=== PATIENT | male | born 1970 | race Caucasian/White ===

== ENCOUNTER → 2021-03-29 08:35 | Outpatient (CLI) | payer OTHER, SELFPAY ==
[2021-03-29 11:36] LABS: COVID19 -Nasal RAPID Negative (Negative)
== END ==
PROVIDERS: PCP Physician Assistant; Visit Provider Nurse Practitioner Family
DX: Z20.822 Contact with and (suspected) exposure to COVID-19 (principal); R05.9 Cough, unspecified; R09.89 Other specified symptoms and signs involving the circulatory and respiratory systems
CPT/HCPCS: 87635

== ENCOUNTER 2022-05-19 10:32 | Emergency (ER) | payer OTHER, SELFPAY ==
[2022-05-19] VITALS (7 sets, daily range): BP systolic 154–178; BP diastolic 97–118; PULSE 91–103; RESP 14–21; TEMP 36.4; O2SAT 95–99; BMI 29.9
--- NOTE | 2022-05-19 11:03 | DI.RAD.S_ITS ---
PROCEDURE: XR CHEST 1V INDICATIONS: chest pain TECHNIQUE: One view of the chest was acquired. COMPARISON: None. FINDINGS: Surgical changes and devices: None. Lungs and pleura: Lungs are clear. No pleural effusions or pneumothorax. Mediastinum: Mediastinal contours appear normal. Heart size is normal. Bones and chest wall: No suspicious bony lesions. Overlying soft tissues appear unremarkable. IMPRESSION: No acute cardiopulmonary abnormality. Dictated by: Del Goldman M.D. on 05/19/2022 at 11:27 Approved by: Del Goldman M.D. on 05/19/2022 at 11:28
[2022-05-19] MEDS: ONDANSETRON 4 MG/2 ML INJ IV (11:09)
[2022-05-19 11:22] LABS: Add Manual Diff / Slide Review NO; Basophils Absolute Auto 100 /uL (0-100); Basophils Percent Auto 0.8 % (0-2); Eosinophils Absolute Auto 0 /uL (0-450); Eosinophils Percent Auto 0.2 % (2-4); Hemoglobin 18.1 g/dL (13.5-17.5); Lymphocytes Absolute Auto 1300 /uL (1100-4500); Lymphocytes Percent Auto 12.1 % (25-40); Mean Corpuscular HGB Conc 34.1 % (30-36); Mean Corpuscular Hemoglobin 31.5 PG (26-34); Mean Corpuscular Volume 92.2 fL (80-100); Monocytes Absolute Auto 1200 /uL (0-900); Monocytes Percent Auto 11.2 % (3-14); Neutrophils Absolute Auto 8300 /uL (1500-7000); Neutrophils Percent Auto 75.7 % (50-75); Platelet Count 306 X10^3/uL (150-400); Red Blood Cell Count 5.75 X10^6/uL (4.5-5.9); Red Cell Distribution Width 13.5 % (11.6-14.8)
[2022-05-19 11:30] LABS: INR 1.1 (0.9-1.3); Prothrombin Time 12.7 SECONDS (10.1-12.7)
[2022-05-19 11:33] LABS: PTT Partial Thromboplastin Tim 40 SECONDS (26-36)
[2022-05-19 11:35] LABS: Alanine Aminotransferase 40 IU/L (<50); Albumin 4.8 g/dL (3.5-5.0); Albumin Globulin Ratio 1.3 (1.0-2.8); Alkaline Phosphatase 94 U/L (38-126); Aspartate Aminotransferase 26 IU/L (17-59); BUN Creatinine Ratio 27.1 (6-22); Bilirubin Total 1.4 mg/dL (0.2-1.3); Blood Urea Nitrogen 26 mg/dL (9-20); Calcium 10.3 mg/dL (8.4-10.2); Carbon Dioxide 22 mmol/L (22-32); Chloride 100 mmol/L (98-107); Creatine Kinase 76 U/L (55-170); Estimated Glomerular Filt Rate > 60 mL/min (>60); Globulin 3.8 g/dL (1.7-4.1); Glucose 112 mg/dL (70-100); HEMOLYSIS < 15 (0-50); Lipase 52 U/L (23-300); Potassium 4.3 mmol/L (3.4-5.1); Sodium 138 mmol/L (137-145); Total Protein 8.6 g/dL (6.3-8.2)
[2022-05-19 11:47] LABS: Troponin I < 0.012 ng/mL (0.01-0.034)
[2022-05-19 12:05] LABS: Influenza A - CEPHEID Flu A NEGATIVE (NEGATIVE); Influenza B - CEPHEID Flu B NEGATIVE (NEGATIVE); Respiratory Syncytial Virus Negative (Negative)
[2022-05-19 12:09] LABS: COVID-19 CEPHEID 4-PLEX PCR POSITIVE (Negative)
[2022-05-19] MEDS: SODIUM CHLORIDE 0.9% 1,000 ML 1000 ML IV (13:33)
[2022-05-19 14:02] LABS: Lactate (Lactic Acid) 1.1 mmol/L (0.7-2.1)
--- NOTE | 2022-05-19 14:15 | ED_ITS ---
HPI - Chest Pain <PARADISE Park - Last Filed: 05/19/22 15:56> General Chief Complaint: Chest Pain Stated Complaint: chest pain [place] abd pain t-4 Time Seen by Provider: 05/19/22 13:22 Source: patient Mode of arrival: Ambulatory Limitations: no limitations History of Present Illness HPI narrative: This is a 51-year-old gentleman who presents to the emergency department complaining of chest pain, nausea and cough for the last 4 days. Patient states that he had nausea vomiting and has not been able to keep anything down for the last couple of days. States he has not had a bowel movement for the last 3 days, CC has not been able to keep anything down in feels dehydrated. He denies any substernal chest pain, states that his pain is worse with deep inspiration and he is had a productive cough with a copious amount of mucus. He denies wheezing, denies shortness of breath when he lies down, denies having any cardiac history, is not diabetic, denies history of COPD or smoking. He feels like he has palpitations, is congested, feels nauseated currently. Denies fever. Related Data Previous Rx's Medication Instructions Recorded lisinopril 10 mg tablet 10 mg PO QDAY #30 tabs 02/19/13 omeprazole 20 mg capsule,delayed 20 mg PO HS #30 caps 02/19/13 release hydrocodone 5 mg-acetaminophen 325 1 tab PO BID PRN pain #14 tabs 05/19/22 mg tablet ondansetron 4 mg disintegrating 4 mg PO Q8H PRN nausea and 05/19/22 tablet vomiting #14 tabs Allergies Allergy/AdvReac Type Severity Reaction Status Date / Time codeine Allergy Verified 05/19/22 11:00 Review of Systems <PARADISE Park - Last Filed: 05/19/22 15:56> Review of Systems Narrative: Review of systems is negative for acute abnormalities unless otherwise noted in HPI Patient History <PARADISE Park - Last Filed: 05/19/22 15:56> Social History Smoking Status: Unknown if ever smoked Smoking Status: Unknown if ever smoked alcohol intake frequency: holidays/special occasions only Substance Use Type: does not use Exam <PARADISE Park - Last Filed: 05/19/22 15:56> Narrative Exam Narrative: Independently reviewed vital signs and nursing notes. General: Awake, alert, nontoxic appearing, without distress Head/Neck: Atraumatic, neck full range of motion, no cervical lymphadenopathy Eyes: EOMI, conjunctiva normal Nose: nares patent, no rhinorrhea, congestion is present Mouth/Throat: moist mucus membranes, posterior pharynx normal, no oral lesions Cardio: Regular rate and rhythm, no peripheral edema without lower extremity edema currently, Respiratory: CTAB unlabored without wheezing, stridor, or rales. No retractions. MSK: Moves all extremities, neurovascularly intact Skin: Normal capillary refill, no rash Neuro: Normal speech and cognition, normal gait Initial Vital Signs Initial Vital Signs: Vital Signs Temperature 97.6 F 05/19/22 10:58 Pulse Rate 103 H 05/19/22 10:58 Respiratory Rate 17 05/19/22 10:58 Blood Pressure 154/97 H 05/19/22 10:58 Pulse Oximetry 99 05/19/22 10:58 Oxygen Delivery Method 05/19/22 10:58 <Ginette Felder DO - Last Filed: 05/20/22 11:53> Initial Vital Signs Initial Vital Signs: Vital Signs Temperature 97.6 F 05/19/22 10:58 Pulse Rate 103 H 05/19/22 10:58 Respiratory Rate 17 05/19/22 10:58 Blood Pressure 154/97 H 05/19/22 10:58 Pulse Oximetry 99 05/19/22 10:58 Oxygen Delivery Method 05/19/22 10:58 Course <PARADISE Park - Last Filed: 05/19/22 15:56> Orders Ordered: Discontinued Medications Sodium Chloride (Normal Saline 0.9%) 1,000 mls @ 1,000 mls/hr IV BOLUS ONE Stop: 05/19/22 14:27 Last Infusion: 05/19/22 14:40 Dose: 0 mls/hr Documented By: Admin: 05/19/22 13:33 Dose: 1,000 mls/hr Documented By: GEORGE(2) Ondansetron HCl (Ondansetron 4 Mg/2 Ml Inj) 4 mg IV NOW ONE Stop: 05/19/22 11:05 Last Admin: 05/19/22 11:09 Dose: 4 mg Documented By: GEORGE Vital Signs Vital signs: Vital Signs - 8 hr 05/19/22 10:58 05/19/22 13:59 05/19/22 14:00 Temperature 97.6 F Pulse Rate 103 H 95 H Respiratory Rate 17 21 Blood Pressure 154/97 H 165/113 H Pulse Oximetry 99 95 Oxygen Delivery Method Room Air 05/19/22 14:00 05/19/22 14:01 05/19/22 14:01 Temperature Pulse Rate 96 H 96 H Respiratory Rate 21 17 Blood Pressure 178/118 H Pulse Oximetry 96 97 Oxygen Delivery Method 05/19/22 14:02 05/19/22 14:02 05/19/22 14:30 Temperature Pulse Rate 96 H 95 H Respiratory Rate 14 15 Blood Pressure 172/100 H Pulse Oximetry 98 96 Oxygen Delivery Method 05/19/22 15:07 Temperature Pulse Rate 91 H Respiratory Rate 18 Blood Pressure 175/106 H Pulse Oximetry 98 Oxygen Delivery Method Room Air <Ginette Felder, - Last Filed: 05/20/22 11:53> Orders Ordered: Discontinued Medications Sodium Chloride (Normal Saline 0.9%) 1,000 mls @ 1,000 mls/hr IV BOLUS ONE Stop: 05/19/22 14:27 Last Infusion: 05/19/22 14:40 Dose: 0 mls/hr Documented By: Admin: 05/19/22 13:33 Dose: 1,000 mls/hr Documented By: GEORGE(2) Ondansetron HCl (Ondansetron 4 Mg/2 Ml Inj) 4 mg IV NOW ONE Stop: 05/19/22 11:05 Last Admin: 05/19/22 11:09 Dose: 4 mg Documented By: GEORGE Vital Signs Vital signs: Vital Signs - 8 hr 05/19/22 10:58 05/19/22 13:59 05/19/22 14:00 Temperature 97.6 F Pulse Rate 103 H 95 H Respiratory Rate 17 21 Blood Pressure 154/97 H 165/113 H Pulse Oximetry 99 95 Oxygen Delivery Method Room Air 05/19/22 14:00 05/19/22 14:01 05/19/22 14:01 Temperature Pulse Rate 96 H 96 H Respiratory Rate 21 17 Blood Pressure 178/118 H Pulse Oximetry 96 97 Oxygen Delivery Method 05/19/22 14:02 05/19/22 14:02 05/19/22 14:30 Temperature Pulse Rate 96 H 95 H Respiratory Rate 14 15 Blood Pressure 172/100 H Pulse Oximetry 98 96 Oxygen Delivery Method 05/19/22 15:07 Temperature Pulse Rate 91 H Respiratory Rate 18 Blood Pressure 175/106 H Pulse Oximetry 98 Oxygen Delivery Method Room Air MDM - Chest Pain <CELI ParkP - Last Filed: 05/19/22 15:56> Lab Data Result diagrams: 05/19/22 11:08 05/19/22 11:08 Labs: Lab Results 05/19/22 05/19/22 05/19/22 Range/Units 11:08 11:08 11:08 WBC 11.0 (4.5-11.0) X10^3/uL RBC 5.75 (4.5-5.9) X10^6/uL Hgb 18.1 H (13.5-17.5) g/dL Hct 53.0 (41-53) % MCV 92.2 (80-100) fL MCH 31.5 (26-34) PG MCHC 34.1 (30-36) % RDW 13.5 (11.6-14.8) % Plt Count 306 (150-400) X10^3/uL Neut % (Auto) 75.7 H (50-75) % Lymph % (Auto) 12.1 L (25-40) % Marshall % (Auto) 11.2 (3-14) % Eos % (Auto) 0.2 L (2-4) % Baso % (Auto) 0.8 (0-2) % Neut # (Auto) 8300 H (5079-8648) /uL Lymph # (Auto) 1300 (1943-6986) /uL Marshall # (Auto) 1200 H (0-900) /uL Eos # (Auto) 0 (0-450) /uL Baso # (Auto) 100 (0-100) /uL PT 12.7 (10.1-12.7) SECONDS INR 1.1 (0.9-1.3) APTT 40 H (26-36) SECONDS Sodium 138 (137-145) mmol/L Potassium 4.3 (3.4-5.1) mmol/L Chloride 100 (98-107) mmol/L Carbon Dioxide 22 (22-32) mmol/L BUN 26 H (9-20) mg/dL Creatinine 0.96 (0.66-1.25) mg/dL Estimated GFR > 60 (>60) mL/min BUN/Creatinine Ratio 27.1 H (6-22) Glucose 112 H (70-100) mg/dL Lactate (0.7-2.1) mmol/L Calcium 10.3 H (8.4-10.2) mg/dL Magnesium 2.0 (1.6-2.3) mg/dL Total Bilirubin 1.4 H (0.2-1.3) mg/dL AST 26 (17-59) IU/L ALT 40 (<50) IU/L Alkaline Phosphatase 94 (38-126) U/L Total Creatine Kinase 76 (55-170) U/L CK-MB (CK-2) TNP CK-MB (CK-2) Rel Index TNP Troponin I < 0.012 (0.01-0.034) ng/mL Total Protein 8.6 H (6.3-8.2) g/dL Albumin 4.8 (3.5-5.0) g/dL Globulin 3.8 (1.7-4.1) g/dL Albumin/Globulin Ratio 1.3 (1.0-2.8) Lipase 52 (23-300) U/L Urine RBC (0-5/HPF) Urine WBC (0-5/HPF) Amorphous Sediment Urine Bacteria (None) Urine Mucus (Negative) Ur Culture Indicated? SARS-CoV-2 (PCR) (Negative) Influenza A (RT-PCR) (NEGATIVE) Influenza B (RT-PCR) (NEGATIVE) RSV (PCR) (Negative) 05/19/22 05/19/22 05/19/22 Range/Units 11:08 11:08 14:20 WBC (4.5-11.0) X10^3/uL RBC (4.5-5.9) X10^6/uL Hgb (13.5-17.5) g/dL Hct (41-53) % MCV (80-100) fL MCH (26-34) PG MCHC (30-36) % RDW (11.6-14.8) % Plt Count (150-400) X10^3/uL Neut % (Auto) (50-75) % Lymph % (Auto) (25-40) % Marshall % (Auto) (3-14) % Eos % (Auto) (2-4) % Baso % (Auto) (0-2) % Neut # (Auto) (7546-8974) /uL Lymph # (Auto) (9362-0675) /uL Marshall # (Auto) (0-900) /uL Eos # (Auto) (0-450) /uL Baso # (Auto) (0-100) /uL PT (10.1-12.7) SECONDS INR (0.9-1.3) APTT (26-36) SECONDS Sodium Cancelled (137-145) mmol/L Potassium Cancelled (3.4-5.1) mmol/L Chloride Cancelled (98-107) mmol/L Carbon Dioxide Cancelled (22-32) mmol/L BUN Cancelled (9-20) mg/dL Creatinine Cancelled (0.66-1.25) mg/dL Estimated GFR Cancelled (>60) mL/min BUN/Creatinine Ratio Cancelled (6-22) Glucose Cancelled (70-100) mg/dL Lactate 1.1 (0.7-2.1) mmol/L Calcium Cancelled (8.4-10.2) mg/dL Magnesium (1.6-2.3) mg/dL Total Bilirubin Cancelled (0.2-1.3) mg/dL AST Cancelled (17-59) IU/L ALT Cancelled (<50) IU/L Alkaline Phosphatase Cancelled (38-126) U/L Total Creatine Kinase (55-170) U/L CK-MB (CK-2) CK-MB (CK-2) Rel Index Troponin I (0.01-0.034) ng/mL Total Protein Cancelled (6.3-8.2) g/dL Albumin Cancelled (3.5-5.0) g/dL Globulin Cancelled (1.7-4.1) g/dL Albumin/Globulin Ratio Cancelled (1.0-2.8) Lipase 338 H D (23-300) U/L Urine RBC (0-5/HPF) Urine WBC (0-5/HPF) Amorphous Sediment Urine Bacteria (None) Urine Mucus (Negative) Ur Culture Indicated? SARS-CoV-2 (PCR) Positive H (Negative) Influenza A (RT-PCR) Flu a negative (NEGATIVE) Influenza B (RT-PCR) Flu b negative (NEGATIVE) RSV (PCR) Negative (Negative) 05/19/22 Range/Units 14:54 WBC (4.5-11.0) X10^3/uL RBC (4.5-5.9) X10^6/uL Hgb (13.5-17.5) g/dL Hct (41-53) % MCV (80-100) fL MCH (26-34) PG MCHC (30-36) % RDW (11.6-14.8) % Plt Count (150-400) X10^3/uL Neut % (Auto) (50-75) % Lymph % (Auto) (25-40) % Marshall % (Auto) (3-14) % Eos % (Auto) (2-4) % Baso % (Auto) (0-2) % Neut # (Auto) (0822-4836) /uL Lymph # (Auto) (1422-2250) /uL Marshall # (Auto) (0-900) /uL Eos # (Auto) (0-450) /uL Baso # (Auto) (0-100) /uL PT (10.1-12.7) SECONDS INR (0.9-1.3) APTT (26-36) SECONDS Sodium (137-145) mmol/L Potassium (3.4-5.1) mmol/L Chloride (98-107) mmol/L Carbon Dioxide (22-32) mmol/L BUN (9-20) mg/dL Creatinine (0.66-1.25) mg/dL Estimated GFR (>60) mL/min BUN/Creatinine Ratio (6-22) Glucose (70-100) mg/dL Lactate (0.7-2.1) mmol/L Calcium (8.4-10.2) mg/dL Magnesium (1.6-2.3) mg/dL Total Bilirubin (0.2-1.3) mg/dL AST (17-59) IU/L ALT (<50) IU/L Alkaline Phosphatase (38-126) U/L Total Creatine Kinase (55-170) U/L CK-MB (CK-2) CK-MB (CK-2) Rel Index Troponin I (0.01-0.034) ng/mL Total Protein (6.3-8.2) g/dL Albumin (3.5-5.0) g/dL Globulin (1.7-4.1) g/dL Albumin/Globulin Ratio (1.0-2.8) Lipase (23-300) U/L Urine RBC 1-5/hpf (0-5/HPF) Urine WBC None seen (0-5/HPF) Amorphous Sediment 2+ Urine Bacteria None seen (None) Urine Mucus 3+ H (Negative) Ur Culture Indicated? Cult not indicated SARS-CoV-2 (PCR) (Negative) Influenza A (RT-PCR) (NEGATIVE) Influenza B (RT-PCR) (NEGATIVE) RSV (PCR) (Negative) Urine Dip Bedside Urine Glucose Negative Bedside Urine Bilirubin - Negative Bedside Urine Ketone +/- 5 Urine Specific [place] 1.030 Bedside Urine Occult Blood +++ Bedside Urine pH 6.0 Bedside Urine Protein + 30 Bedside Urine Urobilinogen - Negative Bedside Urine Nitrite - Negative Bedside Urine Leukocytes - Negative Esterase MDM Narrative Medical decision making narrative: This is a 51-year-old gentleman presents to the emergency department with 4 days of nausea, abdominal pain, vomiting without bowel movement for the last 3 days. He states he has been unable to keep anything down, his respiratory panel is positive for COVID-19. He has history of cholecystectomy but endorses epigastric pain. His lab work is significant for hemo concentration, I suspect that he was moderately dehydrated, there is a left shift without anemia or leukocytosis, coag factors were normal, creatinine without elevation, mild elevation 2 BUN at 26, calcium came back at 10.3 with total bilirubin of 1.4, no elevation to his liver enzymes, troponin, his lipase initial came back at 52 and then 3 hours later a 2nd lipase was documented at 338. I am suspicious if this if it was his and was not aware that he had 2 lab draws. Patient received 1 L of fluid, no lactic acidosis, without leukocytosis low suspicion for cholangitis. Called in Zofran and hydrocodone as needed for pain, discuss with his who states that since he is had his gallbladder removed he has not had gallbladder related issues and has not had any diarrhea but has had frequent vomiting without fever and chills. Given strict return precautions for worsening of his abdominal pain or vomiting to come back to the emergency department, encouraged him to stay hydrated, use NSAIDs and hydrocodone as needed for pain with Zofran for nausea and vomiting. No peritoneal signs on abdominal exam. Patient remains p.o. tolerant. Serial abdominal exam without increase in abdominal pain. Given history and exam, this could be pancreatitis but is less likely since his 1st lipase was 52, his symptoms improved with medications and hydration, perforated viscus, atypical appendicitis, colitis, diverticulitis or torsion without symptoms to suggest these. Extensive convers ation about ER return precautions and need for close follow-up. <Ginette Felder, DO - Last Filed: 05/20/22 11:53> Lab Data Labs: Lab Results 05/19/22 05/19/22 05/19/22 Range/Units 11:08 11:08 11:08 WBC 11.0 (4.5-11.0) X10^3/uL RBC 5.75 (4.5-5.9) X10^6/uL Hgb 18.1 H (13.5-17.5) g/dL Hct 53.0 (41-53) % MCV 92.2 (80-100) fL MCH 31.5 (26-34) PG MCHC 34.1 (30-36) % RDW 13.5 (11.6-14.8) % Plt Count 306 (150-400) X10^3/uL Neut % (Auto) 75.7 H (50-75) % Lymph % (Auto) 12.1 L (25-40) % Marshall % (Auto) 11.2 (3-14) % Eos % (Auto) 0.2 L (2-4) % Baso % (Auto) 0.8 (0-2) % Neut # (Auto) 8300 H (1127-6938) /uL Lymph # (Auto) 1300 (4054-5121) /uL Marshall # (Auto) 1200 H (0-900) /uL Eos # (Auto) 0 (0-450) /uL Baso # (Auto) 100 (0-100) /uL PT 12.7 (10.1-12.7) SECONDS INR 1.1 (0.9-1.3) APTT 40 H (26-36) SECONDS Sodium 138 (137-145) mmol/L Potassium 4.3 (3.4-5.1) mmol/L Chloride 100 (98-107) mmol/L Carbon Dioxide 22 (22-32) mmol/L BUN 26 H (9-20) mg/dL Creatinine 0.96 (0.66-1.25) mg/dL Estimated GFR > 60 (>60) mL/min BUN/Creatinine Ratio 27.1 H (6-22) Glucose 112 H (70-100) mg/dL Lactate (0.7-2.1) mmol/L Calcium 10.3 H (8.4-10.2) mg/dL Magnesium 2.0 (1.6-2.3) mg/dL Total Bilirubin 1.4 H (0.2-1.3) mg/dL AST 26 (17-59) IU/L ALT 40 (<50) IU/L Alkaline Phosphatase 94 (38-126) U/L Total Creatine Kinase 76 (55-170) U/L CK-MB (CK-2) TNP CK-MB (CK-2) Rel Index TNP Troponin I < 0.012 (0.01-0.034) ng/mL Total Protein 8.6 H (6.3-8.2) g/dL Albumin 4.8 (3.5-5.0) g/dL Globulin 3.8 (1.7-4.1) g/dL Albumin/Globulin Ratio 1.3 (1.0-2.8) Lipase 52 (23-300) U/L Urine RBC (0-5/HPF) Urine WBC (0-5/HPF) Amorphous Sediment Urine Bacteria (None) Urine Mucus (Negative) Ur Culture Indicated? SARS-CoV-2 (PCR) (Negative) Influenza A (RT-PCR) (NEGATIVE) Influenza B (RT-PCR) (NEGATIVE) RSV (PCR) (Negative) 05/19/22 05/19/22 05/19/22 Range/Units 11:08 11:08 14:20 WBC (4.5-11.0) X10^3/uL RBC (4.5-5.9) X10^6/uL Hgb (13.5-17.5) g/dL Hct (41-53) % MCV (80-100) fL MCH (26-34) PG MCHC (30-36) % RDW (11.6-14.8) % Plt Count (150-400) X10^3/uL Neut % (Auto) (50-75) % Lymph % (Auto) (25-40) % Marshall % (Auto) (3-14) % Eos % (Auto) (2-4) % Baso % (Auto) (0-2) % Neut # (Auto) (6778-6214) /uL Lymph # (Auto) (4263-2012) /uL Marshall # (Auto) (0-900) /uL Eos # (Auto) (0-450) /uL Baso # (Auto) (0-100) /uL PT (10.1-12.7) SECONDS INR (0.9-1.3) APTT (26-36) SECONDS Sodium Cancelled (137-145) mmol/L Potassium Cancelled (3.4-5.1) mmol/L Chloride Cancelled (98-107) mmol/L Carbon Dioxide Cancelled (22-32) mmol/L BUN Cancelled (9-20) mg/dL Creatinine Cancelled (0.66-1.25) mg/dL Estimated GFR Cancelled (>60) mL/min BUN/Creatinine Ratio Cancelled (6-22) Glucose Cancelled (70-100) mg/dL Lactate 1.1 (0.7-2.1) mmol/L Calcium Cancelled (8.4-10.2) mg/dL Magnesium (1.6-2.3) mg/dL Total Bilirubin Cancelled (0.2-1.3) mg/dL AST Cancelled (17-59) IU/L ALT Cancelled (<50) IU/L Alkaline Phosphatase Cancelled (38-126) U/L Total Creatine Kinase (55-170) U/L CK-MB (CK-2) CK-MB (CK-2) Rel Index Troponin I (0.01-0.034) ng/mL Total Protein Cancelled (6.3-8.2) g/dL Albumin Cancelled (3.5-5.0) g/dL Globulin Cancelled (1.7-4.1) g/dL Albumin/Globulin Ratio Cancelled (1.0-2.8) Lipase 338 H D (23-300) U/L Urine RBC (0-5/HPF) Urine WBC (0-5/HPF) Amorphous Sediment Urine Bacteria (None) Urine Mucus (Negative) Ur Culture Indicated? SARS-CoV-2 (PCR) Positive H (Negative) Influenza A (RT-PCR) Flu a negative (NEGATIVE) Influenza B (RT-PCR) Flu b negative (NEGATIVE) RSV (PCR) Negative (Negative) 05/19/22 Range/Units 14:54 WBC (4.5-11.0) X10^3/uL RBC (4.5-5.9) X10^6/uL Hgb (13.5-17.5) g/dL Hct (41-53) % MCV (80-100) fL MCH (26-34) PG MCHC (30-36) % RDW (11.6-14.8) % Plt Count (150-400) X10^3/uL Neut % (Auto) (50-75) % Lymph % (Auto) (25-40) % Marshall % (Auto) (3-14) % Eos % (Auto) (2-4) % Baso % (Auto) (0-2) % Neut # (Auto) (1576-5652) /uL Lymph # (Auto) (0054-6605) /uL Marshall # (Auto) (0-900) /uL Eos # (Auto) (0-450) /uL Baso # (Auto) (0-100) /uL PT (10.1-12.7) SECONDS INR (0.9-1.3) APTT (26-36) SECONDS Sodium (137-145) mmol/L Potassium (3.4-5.1) mmol/L Chloride (98-107) mmol/L Carbon Dioxide (22-32) mmol/L BUN (9-20) mg/dL Creatinine (0.66-1.25) mg/dL Estimated GFR (>60) mL/min BUN/Creatinine Ratio (6-22) Glucose (70-100) mg/dL Lactate (0.7-2.1) mmol/L Calcium (8.4-10.2) mg/dL Magnesium (1.6-2.3) mg/dL Total Bilirubin (0.2-1.3) mg/dL AST (17-59) IU/L ALT (<50) IU/L Alkaline Phosphatase (38-126) U/L Total Creatine Kinase (55-170) U/L CK-MB (CK-2) CK-MB (CK-2) Rel Index Troponin I (0.01-0.034) ng/mL Total Protein (6.3-8.2) g/dL Albumin (3.5-5.0) g/dL Globulin (1.7-4.1) g/dL Albumin/Globulin Ratio (1.0-2.8) Lipase (23-300) U/L Urine RBC 1-5/hpf (0-5/HPF) Urine WBC None seen (0-5/HPF) Amorphous Sediment 2+ Urine Bacteria None seen (None) Urine Mucus 3+ H (Negative) Ur Culture Indicated? Cult not indicated SARS-CoV-2 (PCR) (Negative) Influenza A (RT-PCR) (NEGATIVE) Influenza B (RT-PCR) (NEGATIVE) RSV (PCR) (Negative) Urine Dip Bedside Urine Glucose Negative Bedside Urine Bilirubin - Negative Bedside Urine Ketone +/- 5 Urine Specific [place] 1.030 Bedside Urine Occult Blood +++ Bedside Urine pH 6.0 Bedside Urine Protein + 30 Bedside Urine Urobilinogen - Negative Bedside Urine Nitrite - Negative Bedside Urine Leukocytes - Negative Esterase ECG Data Attestation: I personally reviewed and interpreted this ECG as follows: Prior ECG tracings: not available for review Interpretation: Sinus tachycardia rate of 1 0 6p are 136 QRS 86 and QTC of 441. No acute ST elevation, no priors for comparison. Discharge Plan Departure Patient Disposition: Home Clinical Impression: COVID-19, Acute dehydration, Elevated lipase Instructions: Nausea and Vomiting-Adult, COVID-19 Activity Restrictions/Additional Instructions: *You have been diagnosed with COVID, and nausea and vomiting with dehydration. Please focus on staying hydrated as you are able to, take Tylenol ibuprofen every 6-8 hours with food and water, take Zofran every 8 hours as needed for nausea and vomiting. It is okay to take loperamide if you are constipated or start using MiraLax to help bring fluid into your colon. I hope you start feeling better soon, return for worsening shortness of breath, chest pain, or other worsening symptoms. Stay well hydrated, take Motrin or Tylenol for fever/pain, and can take [id number] medications if needed for cold symptoms. If you begin to feel short of breath or develop chest pain, please seek medical evaluation. *What to do: *Please continue to take your regular medications as directed. [x ] New medication prescriptions sent to your pharmacy: [[facility] ] [ ] New medication written as a paper prescription [ ] No new medications given *Please follow up with your primary care provider in 2-3 days, call for an appointment. Let them know you were seen in the Emergency Department and that we asked that you be seen for follow-up. We will electronically transmit a record of today's note if your PCP is in our system *If you do not have a primary care provider please contact [phone] to establish care with one of the [facility] primary care providers. *Return to Emergency Department if you should have any new, worsening, or concerning symptoms, such as [fever greater than 101F, chills, worsening pain, persistent vomiting or other bothersome symptoms]. Prescriptions: New ondansetron 4 mg tablet,disintegrating 4 mg PO Q8H PRN (Reason: nausea and vomiting) Qty: 14 0RF hydrocodone-acetaminophen 5-325 mg tablet 1 tab PO BID PRN (Reason: pain) Qty: 14 0RF No Action lisinopril 10 MG tablet 10 mg PO QDAY Qty: 30 3RF omeprazole 20 MG capsule,delayed release(DR/EC) 20 mg PO HS Qty: 30 3RF Referrals: Miscellaneous,Doctor, MD [Primary Care Provider] - Visit Report Forms: Patient Portal/API <Ginette Felder DO - Last Filed: 05/20/22 11:53> [facility] ED Attending Carmita Attestation: I was immediately available in the department for consultation. Documentation has been reviewed. Findings were reviewed, patient appears have accidentally had a 2nd lipase ordered which is reason why it was drawn. Very mildly elevated over the cut off for 300 on repeat.
[2022-05-19 14:58] LABS: Lipase 338 U/L (23-300)
[2022-05-19 15:22] LABS: Amorphous Sediment Urine 2+; Bacteria Urine None Seen; Mucus Urine 3+ (Negative); RBC Urine 1-5/HPF (0-5/HPF); WBC Urine None Seen (0-5/HPF)
[2022-05-19 15:23] LABS: Culture Indicated Urine Cult Not Indicated
== END 2022-05-19 15:08 | disposition home or self-care (01) ==
PROVIDERS: Emergency Medicine; Emergency Provider Nurse Practitioner Critical Care Medicine
DX: U07.1 COVID-19 (principal); E86.0 Dehydration; R74.8 Abnormal levels of other serum enzymes; R11.2 Nausea with vomiting, unspecified
CPT/HCPCS: 0241U; 36415; 71045; 80053; 81003; 81015; 82550; 83605; 83690; 83735; 84484; 85025; 85610; 85730; 93005; J2405

== ENCOUNTER 2022-05-19 17:30 | Emergency (ER) | payer OTHER, SELFPAY ==
[2022-05-19 17:35] VITALS: BP 150/93; PULSE 108; RESP 21; TEMP 36.7; O2SAT 98; BMI 29.9
[2022-05-19 18:13] LABS: D Dimer 325 ng/ml (<500)
[2022-05-19 18:15] LABS: Alanine Aminotransferase 37 IU/L (<50); Albumin 4.5 g/dL (3.5-5.0); Albumin Globulin Ratio 1.3 (1.0-2.8); Alkaline Phosphatase 90 U/L (38-126); Aspartate Aminotransferase 22 IU/L (17-59); BUN Creatinine Ratio 22.6 (6-22); Blood Urea Nitrogen 26 mg/dL (9-20); Calcium 9.8 mg/dL (8.4-10.2); Carbon Dioxide 24 mmol/L (22-32); Chloride 101 mmol/L (98-107); Estimated Glomerular Filt Rate > 60 mL/min (>60); Globulin 3.4 g/dL (1.7-4.1); Glucose 128 mg/dL (70-100); HEMOLYSIS < 15 (0-50); Lactate (Lactic Acid) 0.8 mmol/L (0.7-2.1); Potassium 3.9 mmol/L (3.4-5.1); Sodium 138 mmol/L (137-145); Total Protein 7.9 g/dL (6.3-8.2)
[2022-05-19 18:36] LABS: Lipase 188 U/L (23-300)
[2022-05-19 18:37] LABS: Procalcitonin 0.13 ng/mL (<0.5)
[2022-05-19 18:53] LABS: C-Reactive Protein Quant 1.1 mg/dL (<1.0)
[2022-05-19 18:56] LABS: Troponin I < 0.012 ng/mL (0.01-0.034)
[2022-05-19 19:09] VITALS: BP 150/90; PULSE 100; RESP 18; TEMP 36.7; O2SAT 99
--- NOTE | 2022-05-19 20:11 | ED_ITS ---
HPI - Chest Pain <PARADISE Park - Last Filed: 05/19/22 20:19> General Chief Complaint: Chest Pain Stated Complaint: CHEST PAIN Time Seen by Provider: 05/19/22 17:43 Source: patient Mode of arrival: Ambulatory Limitations: no limitations History of Present Illness HPI narrative: This is a 51-year-old gentleman who returns to the emergency department after testing positive for COVID-19 and worked up for his nausea and vomiting. I called him after discharge and spoke with his regarding an elevated lipase level which came back at 338, 2 hours after his 1st lipase was drawn with a level of 52. I called in pain medication, nausea medication encouraged the patient to stay hydrated, and he returns saying that he still has pain and did not think it was due to COVID-19. He said it was probably pancreatitis since I was concerned about with the lab value. He denies any new symptoms since his discharge a couple hours ago. He picked up his medications, I talked with him about his symptoms and offered to recheck his lab work and his EKG to ensure that this is not a new problem on top of his other problems. Related Data Previous Rx's Medication Instructions Recorded lisinopril 10 mg tablet 10 mg PO QDAY #30 tabs 02/19/13 omeprazole 20 mg capsule,delayed 20 mg PO HS #30 caps 02/19/13 release hydrocodone 5 mg-acetaminophen 325 1 tab PO BID PRN pain #14 tabs 05/19/22 mg tablet ondansetron 4 mg disintegrating 4 mg PO Q8H PRN nausea and 05/19/22 tablet vomiting #14 tabs Allergies Allergy/AdvReac Type Severity Reaction Status Date / Time codeine Allergy Verified 05/19/22 11:00 Review of Systems <PARADISE Park - Last Filed: 05/19/22 20:19> Review of Systems Narrative: Review of systems is negative for acute abnormalities unless otherwise noted in HPI Patient History <PARADISE Park - Last Filed: 05/19/22 20:19> Social History Smoking Status: Unknown if ever smoked Smoking Status: Unknown if ever smoked alcohol intake frequency: holidays/special occasions only Substance Use Type: does not use Exam <PARADISE Park - Last Filed: 05/19/22 20:19> Narrative Exam Narrative: Reviewed vitals signs and nursing notes. General: cooperative, comfortable, in no acute distress, well groomed, afebrile HEENT: symmetrical facial expressions, moist mucous membranes, congestion present Cardiovascular: Tachycardic rate and regular rhythm, no peripheral edema, warm extremities Respiratory: normal effort, able to speak in complete sentences, without wheezing, stridor, or abnormal breath sounds. No retractions or tachypnea. GI: abdomen soft,tender to palpation over his epigastrium, nondistended, without masses, rebound tenderness or exquisite tenderness with exam. Without recent vomiting MSK: moves all extremities, neurovascularly intact, no weakness, normal tone Skin: brisk capillary refill, without pallor or erythema Neuro: normal speech and cognition, A&O x3, ambulatory, clear speech Psych: mental status is grossly normal, congruent mood, normal affect, pleasant and cooperative Initial Vital Signs Initial Vital Signs: Vital Signs Temperature 98.1 F 05/19/22 17:35 Pulse Rate 108 H 05/19/22 17:35 Respiratory Rate 21 05/19/22 17:35 Blood Pressure 150/93 H 05/19/22 17:35 Pulse Oximetry 98 05/19/22 17:35 Oxygen Delivery Method 05/19/22 17:35 <Ginette Felder DO - Last Filed: 05/20/22 12:03> Initial Vital Signs Initial Vital Signs: Vital Signs Temperature 98.1 F 05/19/22 17:35 Pulse Rate 108 H 05/19/22 17:35 Respiratory Rate 21 05/19/22 17:35 Blood Pressure 150/93 H 05/19/22 17:35 Pulse Oximetry 98 05/19/22 17:35 Oxygen Delivery Method 05/19/22 17:35 Course <PARADISE Park - Last Filed: 05/19/22 20:19> Orders Ordered: ED Orders 05/19/22 16:45 Trop I [Troponin I] Stat 05/19/22 17:52 CMP [Comprehensive Metabolic Panel] Stat CRP [C-Reactive Protein Quant] Stat D Dimer Stat Lactate (Lactic Acid) Stat Lipase Stat Procalcitonin Stat 05/19/22 18:01 EKG-12 Lead Stat Vital Signs Vital signs: Vital Signs - 8 hr 05/19/22 17:35 05/19/22 19:09 Temperature 98.1 F 98.1 F Pulse Rate 108 H 100 H Respiratory Rate 21 18 Blood Pressure 150/93 H 150/90 H Pulse Oximetry 98 99 Oxygen Delivery Method Room Air <Ginette Felder DO - Last Filed: 05/20/22 12:03> Orders Ordered: ED Orders 05/19/22 16:45 Trop I [Troponin I] Stat 05/19/22 17:52 CMP [Comprehensive Metabolic Panel] Stat CRP [C-Reactive Protein Quant] Stat D Dimer Stat Lactate (Lactic Acid) Stat Lipase Stat Procalcitonin Stat 05/19/22 18:01 EKG-12 Lead Stat Vital Signs Vital signs: Vital Signs - 8 hr 05/19/22 17:35 05/19/22 19:09 Temperature 98.1 F 98.1 F Pulse Rate 108 H 100 H Respiratory Rate 21 18 Blood Pressure 150/93 H 150/90 H Pulse Oximetry 98 99 Oxygen Delivery Method Room Air MDM - Chest Pain <PARADISE Park - Last Filed: 05/19/22 20:19> Lab Data Result diagrams: 05/19/22 17:52 Labs: Lab Results 05/19/22 05/19/22 05/19/22 Range/Units 16:45 17:52 17:52 D-Dimer 325 (<500) ng/ml Sodium (137-145) mmol/L Potassium (3.4-5.1) mmol/L Chloride (98-107) mmol/L Carbon Dioxide (22-32) mmol/L BUN (9-20) mg/dL Creatinine (0.66-1.25) mg/dL Estimated GFR (>60) mL/min BUN/Creatinine Ratio (6-22) Glucose (70-100) mg/dL Lactate (0.7-2.1) mmol/L Calcium (8.4-10.2) mg/dL Total Bilirubin (0.2-1.3) mg/dL AST (17-59) IU/L ALT (<50) IU/L Alkaline Phosphatase (38-126) U/L Troponin I < 0.012 (0.01-0.034) ng/mL C-Reactive Protein (<1.0) mg/dL Total Protein (6.3-8.2) g/dL Albumin (3.5-5.0) g/dL Globulin (1.7-4.1) g/dL Albumin/Globulin Ratio (1.0-2.8) Lipase 188 (23-300) U/L Procalcitonin (<0.5) ng/mL 05/19/22 05/19/22 05/19/22 Range/Units 17:52 17:52 17:52 D-Dimer (<500) ng/ml Sodium 138 (137-145) mmol/L Potassium 3.9 (3.4-5.1) mmol/L Chloride 101 (98-107) mmol/L Carbon Dioxide 24 (22-32) mmol/L BUN 26 H (9-20) mg/dL Creatinine 1.15 (0.66-1.25) mg/dL Estimated GFR > 60 (>60) mL/min BUN/Creatinine Ratio 22.6 H (6-22) Glucose 128 H (70-100) mg/dL Lactate 0.8 (0.7-2.1) mmol/L Calcium 9.8 (8.4-10.2) mg/dL Total Bilirubin 1.0 (0.2-1.3) mg/dL AST 22 (17-59) IU/L ALT 37 (<50) IU/L Alkaline Phosphatase 90 (38-126) U/L Troponin I (0.01-0.034) ng/mL C-Reactive Protein 1.1 H (<1.0) mg/dL Total Protein 7.9 (6.3-8.2) g/dL Albumin 4.5 (3.5-5.0) g/dL Globulin 3.4 (1.7-4.1) g/dL Albumin/Globulin Ratio 1.3 (1.0-2.8) Lipase (23-300) U/L Procalcitonin 0.13 (<0.5) ng/mL Imaging Data Chest x-ray: Radiologist's Impression: PROCEDURE:? XR CHEST 1V ? INDICATIONS:? chest pain ? TECHNIQUE:? One view of the chest was acquired.? ? COMPARISON:? None. ? FINDINGS:? ? Surgical changes and devices:? None.? ? Lungs and pleura:? Lungs are clear.? No pleural effusions or pneumothorax.? ? Mediastinum:? Mediastinal contours appear normal.? Heart size is normal.? ? Bones and chest wall:? No suspicious bony lesions.? Overlying soft tissues appear unremarkable.? ? IMPRESSION:? No acute cardiopulmonary abnormality. ? ? Dictated by: Del Goldman M.D. on 05/19/2022 at 11:27 ? ? Approved by: Del Goldman M.D. on 05/19/2022 at 11:28 ? ECG Data Interpretation: EKG independently reviewed by myself at [1802] reveals sinus tachycardia at 105 bpm with regular axis and intervals. No STEMI, ST segment changes, arrhythmia, or acute ischemic changes. MDM Narrative Medical decision making narrative: This is a 51-year-old gentleman who returns to the emergency department after being discharged a couple hours ago COVID positive for ongoing pain in his epigastrium, pain with deep inspiration, and states that he does not think it is related to COVID. Interestingly when he was here in the emergency department, his initial lipase was 52, 2 hours later a 2nd set of labs was drawn and repeat lipase was 338. That is what prompted me to call the patient and ask how he was doing from abdominal pain standpoint because in the emergency department his symptoms had improved, he was well hydrated, p.o. tolerant and was ready to go home. Recheck of his lab work this evening shows a D-dimer of 325, no joseluis ctrolyte abnormalities, his lactate is improved from earlier at 0.8 down from 1.1, calcium is normal, total bilirubin is normal, no elevation to liver enzymes, troponin is negative, CRP is 1.1 and repeat lipase was 188. Procalcitonin 0.13, his urine is negative for infection, COVID PCR earlier today is positive. Chest x-ray without acute cardiopulmonary abnormalities, EKG shows sinus tachycardia with a rate of 105, without ST changes compared with prior and without new arrhythmia. He was provided antiemetics, pain medication, encouraged stay hydrated and to return for any worsening conditions. Patient has a history of hypertension but no other comorbidities for Mace, his heart score is 1. Recommend patient use medications to treat his symptoms, let him know that COVID symptoms last for approximately a week or longer, if he is unable to tolerate p.o. then he is encouraged to come back to the emergency department. <Ginette Felder, DO - Last Filed: 05/20/22 12:03> Lab Data Labs: Lab Results 05/19/22 05/19/22 05/19/22 Range/Units 16:45 17:52 17:52 D-Dimer 325 (<500) ng/ml Sodium (137-145) mmol/L Potassium (3.4-5.1) mmol/L Chloride (98-107) mmol/L Carbon Dioxide (22-32) mmol/L BUN (9-20) mg/dL Creatinine (0.66-1.25) mg/dL Estimated GFR (>60) mL/min BUN/Creatinine Ratio (6-22) Glucose (70-100) mg/dL Lactate (0.7-2.1) mmol/L Calcium (8.4-10.2) mg/dL Total Bilirubin (0.2-1.3) mg/dL AST (17-59) IU/L ALT (<50) IU/L Alkaline Phosphatase (38-126) U/L Troponin I < 0.012 (0.01-0.034) ng/mL C-Reactive Protein (<1.0) mg/dL Total Protein (6.3-8.2) g/dL Albumin (3.5-5.0) g/dL Globulin (1.7-4.1) g/dL Albumin/Globulin Ratio (1.0-2.8) Lipase 188 (23-300) U/L Procalcitonin (<0.5) ng/mL 05/19/22 05/19/22 05/19/22 Range/Units 17:52 17:52 17:52 D-Dimer (<500) ng/ml Sodium 138 (137-145) mmol/L Potassium 3.9 (3.4-5.1) mmol/L Chloride 101 (98-107) mmol/L Carbon Dioxide 24 (22-32) mmol/L BUN 26 H (9-20) mg/dL Creatinine 1.15 (0.66-1.25) mg/dL Estimated GFR > 60 (>60) mL/min BUN/Creatinine Ratio 22.6 H (6-22) Glucose 128 H (70-100) mg/dL Lactate 0.8 (0.7-2.1) mmol/L Calcium 9.8 (8.4-10.2) mg/dL Total Bilirubin 1.0 (0.2-1.3) mg/dL AST 22 (17-59) IU/L ALT 37 (<50) IU/L Alkaline Phosphatase 90 (38-126) U/L Troponin I (0.01-0.034) ng/mL C-Reactive Protein 1.1 H (<1.0) mg/dL Total Protein 7.9 (6.3-8.2) g/dL Albumin 4.5 (3.5-5.0) g/dL Globulin 3.4 (1.7-4.1) g/dL Albumin/Globulin Ratio 1.3 (1.0-2.8) Lipase (23-300) U/L Procalcitonin 0.13 (<0.5) ng/mL ECG Data Attestation: I personally reviewed and interpreted this ECG as follows: Prior ECG tracings: available for review Interpretation: EKG independently reviewed by myself at [1802] reveals sinus tachycardia at 105 bpm with regular axis and intervals. No STEMI, ST segment changes, arrhythmia, or acute ischemic changes. No dynamic changes in comparison to EKG from earlier today at 11:08 a.m. Discharge Plan Departure Patient Disposition: Home Clinical Impression: COVID-19 Activity Restrictions/Additional Instructions: *You have been diagnosed with COVID-19. We retested your lab work, there is no elevation to your lipase above a normal level, your D-dimer does not reflect any blood clots, your dehydration is improved from earlier, and your white blood cell count is not elevated. Your EKG does not show any ST changes or concerning findings for a heart attack. Please stay hydrated, COVID causes a lot of inf lammation, take ibuprofen and Tylenol as needed for your symptoms, I gave you hydrocodone to use for severe pain, use Zofran for vomiting and nausea and hopefully you start getting better soon. We do not find anything dangerous on your workup again this afternoon. *What to do: *Please continue to take your regular medications as directed. [ ] New medication prescriptions sent to your pharmacy: [ ] [ ] New medication written as a paper prescription [ x] No new medications given *Please follow up with your primary care provider in 2-3 days, call for an appo intment. Let them know you were seen in the Emergency Department and that we asked that you be seen for follow-up. We will electronically transmit a record of today's note if your PCP is in our system *If you do not have a primary care provider please contact [phone] to establish care with one of the [facility] primary care providers. *Return to Emergency Department if you should have any new, worsening, or concerning symptoms, such as [fever greater than 101F, chills, worsening pain, persistent vomiting or other bothersome symptoms]. Prescriptions: No Action lisinopril 10 MG tablet 10 mg PO QDAY Qty: 30 3RF omeprazole 20 MG capsule,delayed release(DR/EC) 20 mg PO HS Qty: 30 3RF ondansetron 4 mg tablet,disintegrating 4 mg PO Q8H PRN (Reason: nausea and vomiting) Qty: 14 0RF hydrocodone-acetaminophen 5-325 mg tablet 1 tab PO BID PRN (Reason: pain) Qty: 14 0RF Visit Report Forms: Patient Portal/API <Ginette Felder DO - Last Filed: 05/20/22 12:03> Cosign ED Attending Jorge Lature Attestation: I was immediately available in the department for consultation. Documentation has been reviewed.
== END 2022-05-19 19:11 | disposition home or self-care (01) ==
PROVIDERS: Emergency Medicine; Emergency Provider Nurse Practitioner Critical Care Medicine
DX: U07.1 COVID-19 (principal); R11.2 Nausea with vomiting, unspecified; R00.0 Tachycardia, unspecified; E86.0 Dehydration; R74.8 Abnormal levels of other serum enzymes
CPT/HCPCS: 0241U; 36415; 71045; 80053; 81003; 81015; 82550; 83605; 83690; 83735; 84145; 84484; 85025; 85379; 85610; 85730; 86140; 93005; 96374; 99281; 99284; J2405

== ENCOUNTER → 2023-05-04 07:56 | Outpatient (CLI) | payer OTHER, SELFPAY ==
[2023-05-04 09:50] LABS: Add Manual Diff / Slide Review NO; Basophils Absolute Auto 100 /uL (0-100); Basophils Percent Auto 0.9 % (0-2); Eosinophils Absolute Auto 300 /uL (0-450); Eosinophils Percent Auto 4.5 % (2-4); Hematocrit 46.1 % (41-53); Hemoglobin 15.5 g/dL (13.5-17.5); Lymphocytes Absolute Auto 1900 /uL (1100-4500); Lymphocytes Percent Auto 29.2 % (25-40); Mean Corpuscular HGB Conc 33.6 % (30-36); Mean Corpuscular Hemoglobin 31.7 PG (26-34); Mean Corpuscular Volume 94.3 fL (80-100); Monocytes Absolute Auto 500 /uL (0-900); Monocytes Percent Auto 7.4 % (3-14); Neutrophils Absolute Auto 3900 /uL (1500-7000); Platelet Count 307 X10^3/uL (150-400); Red Blood Cell Count 4.89 X10^6/uL (4.5-5.9); Red Cell Distribution Width 13.1 % (11.6-14.8); White Blood Cell Count 6.7 X10^3/uL (4.5-11.0)
[2023-05-04 10:01] LABS: Hemoglobin A1C% w Est Avg Glu 5.7 % (4.0-6.0)
[2023-05-04 10:25] LABS: Creatinine Urine Random 131.3 mg/dL
[2023-05-04 10:25] LABS: Alanine Aminotransferase 29 IU/L (<50); Albumin 4.4 g/dL (3.5-5.0); Albumin Globulin Ratio 1.6 (1.0-2.8); Alkaline Phosphatase 82 U/L (38-126); Aspartate Aminotransferase 20 IU/L (17-59); BUN Creatinine Ratio 21.3 (6-22); Bilirubin Total 0.7 mg/dL (0.2-1.3); Blood Urea Nitrogen 17 mg/dL (9-20); Calcium 10.9 mg/dL (8.4-10.2); Carbon Dioxide 30 mmol/L (22-32); Chloride 104 mmol/L (98-107); Cholesterol 214 mg/dL (140-199); Estimated Glomerular Filt Rate > 60 mL/min (>60); Globulin 2.8 g/dL (1.7-4.1); Glucose 116 mg/dL (70-100); HDL Cholesterol 47 mg/dL (40-60); HEMOLYSIS < 15 (0-50); LDL Cholesterol Calculated 149 mg/dL (<100); Potassium 4.9 mmol/L (3.4-5.1); Sodium 141 mmol/L (137-145); Total Protein 7.2 g/dL (6.3-8.2); Triglycerides 92 mg/dL (35-150)
[2023-05-04 10:29] LABS: Microalbumi Creatinin Ratio Ur 10.6 ug/mg CR (<30); Microalbumin Urine Random 1.4 mg/dL (0-1.6)
== END ==
PROVIDERS: PCP Family Medicine; Referring Provider Family Medicine; Visit Provider Family Medicine
DX: I10 Essential (primary) hypertension (principal); R07.89 Other chest pain
CPT/HCPCS: 36415; 80053; 80061; 82043; 82570; 83036; 85025

== ENCOUNTER → 2023-06-02 09:06 | Outpatient (CLI) | payer OTHER, SELFPAY ==
--- NOTE | 2023-06-02 09:07 | DI.RAD.S_ITS ---
PROCEDURE: XR CHEST 2V INDICATIONS: chronic cough TECHNIQUE: 2 views of the chest were acquired. COMPARISON: [facility], CR, XR CHEST 1V, 05/19/2022, 11:28. FINDINGS: Surgical changes and devices: None. Lungs and pleura: Lungs are clear. No pleural effusions or pneumothorax. Mediastinum: Mediastinal contours are normal. Heart size is normal. Bones and chest wall: No suspicious bony abnormalities. Soft tissues appear unremarkable. IMPRESSION: No acute cardiopulmonary abnormality is seen. Dictated by: Veronica Rose M.D. on 06/02/2023 at 13:54 Approved by: Veronica Rose M.D. on 06/02/2023 at 13:55
== END ==
PROVIDERS: PCP Family Medicine; Referring Provider Family Medicine; Visit Provider Family Medicine
DX: R05.3 Chronic cough (principal)
CPT/HCPCS: 71046

== ENCOUNTER 2024-02-06 10:28 | Emergency (ER) | payer OTHER, SELFPAY ==
[2024-02-06] VITALS (92 sets, daily range): BP systolic 114–222; BP diastolic 65–133; PULSE 80–119; RESP 11–31; TEMP 36.9; O2SAT 90–99; BMI 29.9
--- NOTE | 2024-02-06 10:49 | EKG_ITS ---
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
--- NOTE | 2024-02-06 10:49 | DI.RAD.S_ITS ---
PROCEDURE: XR CHEST 1V INDICATIONS: suspected sepsis TECHNIQUE: One view of the chest was acquired. COMPARISON: [facility], CR, XR CHEST 2V, 06/02/2023, 9:09. [facility], CR, XR CHEST 1V, 05/19/2022, 11:28. FINDINGS: Surgical changes and devices: None. Lungs and pleura: No dense consolidation or pleural effusion Mediastinum: Heart size is within normal limits Bones and chest wall: Unremarkable IMPRESSION: No acute radiographic abnormality on this limited single view portable study. Dictated by: Anthony Torres M.D. on 02/06/2024 at 11:30 Approved by: Anthony Torres M.D. on 02/06/2024 at 11:31
[2024-02-06] MEDS: SODIUM CHLORIDE 0.9% 1,000 ML 1000 ML IV ×2 (11:11→12:21)
[2024-02-06] MEDS: ONDANSETRON 4 MG/2 ML INJ IV ×3 (11:12→21:46)
[2024-02-06 11:22] LABS: Add Manual Diff / Slide Review NO; Basophils Absolute Auto 100 /uL (0-100); Basophils Percent Auto 0.5 % (0-2); Eosinophils Absolute Auto 0 /uL (0-450); Hematocrit 48.2 % (41-53); Hemoglobin 16.6 g/dL (13.5-17.5); Lymphocytes Absolute Auto 1000 /uL (1100-4500); Lymphocytes Percent Auto 6.3 % (25-40); Mean Corpuscular HGB Conc 34.4 % (30-36); Monocytes Absolute Auto 700 /uL (0-900); Monocytes Percent Auto 4.5 % (3-14); Neutrophils Absolute Auto 14700 /uL (1500-7000); Neutrophils Percent Auto 88.7 % (50-75); Platelet Count 318 X10^3/uL (150-400); Prothrombin Time 11.8 SECONDS (9.4-12.5); Red Blood Cell Count 5.18 X10^6/uL (4.5-5.9); Red Cell Distribution Width 13.4 % (11.6-14.8); White Blood Cell Count 16.6 X10^3/uL (4.5-11.0)
[2024-02-06 11:25] LABS: PTT Partial Thromboplastin Tim 38 SECONDS (25.1-36.5)
[2024-02-06 11:28] LABS: Alanine Aminotransferase 41 IU/L (<50); Albumin 4.7 g/dL (3.5-5.0); Albumin Globulin Ratio 1.4 (1.0-2.8); Alkaline Phosphatase 90 U/L (38-126); Aspartate Aminotransferase 123 IU/L (17-59); BUN Creatinine Ratio 17.2 (6-22); Bilirubin Total 1.2 mg/dL (0.2-1.3); Blood Urea Nitrogen 15 mg/dL (9-20); Calcium 10.9 mg/dL (8.4-10.2); Carbon Dioxide 24 mmol/L (22-32); Chloride 105 mmol/L (98-107); Estimated Glomerular Filt Rate > 60 mL/min (>60); Globulin 3.4 g/dL (1.7-4.1); Glucose 169 mg/dL (70-100); HEMOLYSIS < 15 (0-50); Lipase 165 U/L (23-300); Sodium 141 mmol/L (137-145); Total Protein 8.1 g/dL (6.3-8.2)
[2024-02-06 11:33] LABS: Lactate (Lactic Acid) 1.6 mmol/L (0.7-2.1)
[2024-02-06 11:45] LABS: Procalcitonin 0.058 ng/mL (<0.5)
[2024-02-06 11:45] LABS: Adenovirus Not Detected (Not Detect); B. parapertussis Not Detected (Not Detecte); Bordetella pertussis Not Detected (Not Detect); Chlamydophila pneumoniae Not Detected (Not Detect); Coronavirus 229E Not Detected (Not Detect); Coronavirus HKU1 Not Detected (Not Detect); Coronavirus NL 63 Not Detected (Not Detect); Coronavirus OC43 Not Detected (Not Detect); Human Metapneumovirus Not Detected (Not Detect); Human Rhinovirus/Enterovirus Not Detected (Not Detect); Influenza A Not Detected (Not Detect); Influenza B Not Detected (Not Detect); Mycoplasma pneumoniae Not Detected (Not Detect); Parainfluenza Virus 1 Not Detected (Not Detect); Parainfluenza Virus 2 Not Detected (Not Detect); Parainfluenza Virus 3 Not Detected (Not Detect); Parainfluenza Virus 4 Not Detected (Not Detect); Respiratory Syncytial Virus Not Detected (Not Detect); SARS- CoV-2 Not Detected (Not Detecte)
--- NOTE | 2024-02-06 11:50 | ED_ITS ---
HPI - Chest Pain General Chief Complaint: Chest Pain Stated Complaint: Throwing up , COVID + Time Seen by Provider: 02/06/24 11:20 Source: patient Mode of arrival: Ambulatory Limitations: no limitations History of Present Illness HPI narrative: 53-year-old male has 3 days' duration of dry cough, nausea and vomiting nonbloody many episodes, no loose stools, no black or red stools. has also had recent upper respiratory infection symptoms, neither have been swabbed for COVID, though they had concerns they might have COVID. He has upper abdominal discomfort, worse with retching. Lower chest pain, worse with coughing. He denies flank pain, painful urination, history of urinary tract infections. No injury trauma new activities. Related Data Previous Rx's Medication Instructions Recorded losartan 50 mg tablet 50 mg PO DAILY blood pressure #90 05/03/23 tabs atorvastatin 20 mg tablet (Lipitor) 20 mg PO BEDTIME cholesterol #90 06/02/23 tabs cetirizine 10 mg tablet (Zyrtec) 10 mg PO DAILY PRN allergy 08/28/23 symptoms #90 tabs Allergies Allergy/AdvReac Type Severity Reaction Status Date / Time No Known Drug Allergies Allergy Verified 02/06/24 10:38 Review of Systems Review of Systems Narrative: per HPI Patient History Medical History (Updated 02/06/24 @ 13:28 by Rio Mcfadden MD) IFG (impaired fasting glucose) Benign essential HTN Surgical History (Updated 06/01/23 @ 18:03 by Corrie Denton) Anesthesia History of ankle surgery (~2011) Social History Smoking Status: Former smoker Smoking Status: Former smoker alcohol intake frequency: holidays/special occasions only Substance Use Type: marijuana Exam Narrative Exam Narrative: GENERAL: Well-developed patient, in mild distress. HEAD: Atraumatic. Normocephalic. EYES: Pupils equal round and reactive. Extraocular motions intact. No scleral icterus. No injection or drainage. ENT: Nose without bleeding, purulent drainage. Throat without erythema, tonsillar hypertrophy or exudate. Airway patent. NECK: Trachea midline. Non tender CARDIOVASCULAR: Fast rate regular rhythm, without murmurs, gallops, or rubs. RESPIRATORY: Clear to auscultation. Breath sounds equal bilaterally. No wheezes, rales, or rhonchi. GASTROINTESTINAL: Tenderness epigastrium and supraumbilical region, nondistended, no guarding or rebound tenderness. No bruit obvious, no fluid wave obvious. EXTREMITIES: No edema or joint tenderness. BACK: Nontender without deformity or crepitance. No flank tenderness. NEURO: AOx3. SKIN: No rash or erythema of visible areas Initial Vital Signs Initial Vital Signs: Vital Signs Temperature 98.5 F 02/06/24 10:39 Pulse Rate 118 H 02/06/24 10:39 Respiratory Rate 22 02/06/24 10:39 Blood Pressure 171/105 H 02/06/24 10:39 Pulse Oximetry 97 02/06/24 10:39 Oxygen Delivery Method Room Air 02/06/24 10:39 Course Orders Ordered: ED Orders 02/06/24 13:10 Trop I [Troponin I] Stat 02/06/24 13:20 Urinalysis and Microscopic Stat 02/06/24 13:28 EKG-12 Lead Stat 02/06/24 13:35 CT angio chest PE protocol Stat 02/06/24 22:00 PTT [PTT Partial Thromboplastin Ayden] Q6H 02/07/24 04:00 PTT [PTT Partial Thromboplastin Ayden] Q6H 02/07/24 05:00 Hemoglobin and Hematocrit DAILY Platelet Count DAILY 02/07/24 10:00 PTT [PTT Partial Thromboplastin Ayden] Q6H 02/07/24 16:00 PTT [PTT Partial Thromboplastin Ayden] Q6H 02/08/24 05:00 Hemoglobin and Hematocrit DAILY Platelet Count DAILY Heparin Sodium/Dextrose (Heparin Drip) 25,000 unit in 500 mls @ 26.133 mls/hr IV CONT PAUL; Protocol Last Admin: 02/06/24 15:47 Dose: 12 units/kg/hr, 26.133 mls/hr Documented By: LAURITA Co-signed By: GEORGE Nitroglycerin (Nitroglycerin) 50 mg in 250 mls @ 1.5 mls/hr IV TITRATE PAUL; Protocol Last Titration: 02/06/24 20:40 Dose: 20 mcg/min, 6 mls/hr Documented By: Titration: 02/06/24 19:48 Dose: 15 mcg/min, 4.5 mls/hr Documented By: Titration: 02/06/24 16:22 Dose: 10 mcg/min, 3 mls/hr Documented By: Admin: 02/06/24 15:49 Dose: 5 mcg/min, 1.5 mls/hr Documented By: MPO Nitroglycerin (Nitroglycerin 0.4 Mg Sl Tab) 0.4 mg SL [id number] PRN PRN Reason: Chest Pain Last Admin: 02/06/24 13:55 Dose: 0.4 mg Documented By: MPO Discontinued Medications Aspirin (Aspirin 81 Mg Chew Tab) 324 mg PO NOW ONE Stop: 02/06/24 18:13 Last Admin: 02/06/24 18:57 Dose: 324 mg Documented By: MPO Heparin Sodium (Porcine) (Heparin 5,000 Unit/Ml Vial) 5,000 unit IV NOW ONE Stop: 02/06/24 13:30 Last Admin: 02/06/24 15:47 Dose: 5,000 unit Documented By: MPO Hydromorphone HCl (Hydromorphone 1 Mg Inj) 1 mg IV NOW ONE Stop: 02/06/24 15:54 Last Admin: 02/06/24 16:00 Dose: 1 mg Documented By: MPO Sodium Chloride (Normal Saline 0.9%) 1,000 mls @ 1,000 mls/hr IV BOLUS ONE Stop: 02/06/24 11:48 Last Infusion: 02/06/24 12:14 Dose: Infused Documented By: Admin: 02/06/24 11:11 Dose: 1,000 mls/hr Documented By: MPO Sodium Chloride (Normal Saline 0.9%) 1,000 mls @ 1,000 mls/hr IV BOLUS ONE Stop: 02/06/24 12:54 Last Infusion: 02/06/24 13:51 Dose: Infused Documented By: Admin: 02/06/24 12:21 Dose: 1,000 mls/hr Documented By: MPO Sodium Chloride (Normal Saline 0.9%) 1,000 mls @ 1,000 mls/hr IV BOLUS ONE Stop: 02/06/24 13:00 Last Admin: 02/06/24 13:06 Dose: Not Given Documented By: GEORGE(2) Labetalol HCl (Labetalol 20 Mg/4 Ml Syringe) 10 mg IV NOW ONE Stop: 02/06/24 13:38 Last Admin: 02/06/24 13:50 Dose: 10 mg Documented By: MPO Lorazepam (Lorazepam 2 Mg/Ml Inj) 1 mg IM NOW ONE Stop: 02/06/24 12:29 Last Admin: 02/06/24 12:33 Dose: 1 mg Documented By: LAURITA Metoclopramide HCl (Metoclopramide 10 Mg/2 Ml Inj) 10 mg IV NOW ONE Stop: 02/06/24 15:39 Last Admin: 02/06/24 15:40 Dose: 10 mg Documented By: GEORGE(2) Morphine Sulfate (Morphine 4 Mg/Ml Inj) 4 mg IV NOW ONE Stop: 02/06/24 12:02 Last Admin: 02/06/24 12:22 Dose: 4 mg Documented By: LAURITA Morphine Sulfate (Morphine 4 Mg/Ml Inj) 4 mg IV NOW ONE Stop: 02/06/24 15:46 Last Admin: 02/06/24 16:07 Dose: Not Given Documented By: LAURITA Ondansetron HCl (Ondansetron 4 Mg/2 Ml Inj) 4 mg IV NOW PRN PRN Reason: Nausea And Vomiting Last Admin: 02/06/24 11:12 Dose: 4 mg Documented By: LAURITA Ondansetron HCl (Ondansetron 4 Mg Odt) 4 mg SL NOW PRN PRN Reason: Nausea And Vomiting Last Admin: 02/06/24 12:22 Dose: 4 mg Documented By: LAURITA Ondansetron HCl (Ondansetron 4 Mg/2 Ml Inj) 4 mg IV NOW ONE Stop: 02/06/24 14:11 Last Admin: 02/06/24 14:14 Dose: 4 mg Documented By: GEORGE(2) Vital Signs Vital signs: Vital Signs - 8 hr 02/06/24 13:30 02/06/24 13:30 02/06/24 13:50 Pulse Rate 100 H 100 H Respiratory Rate 22 Blood Pressure 222/121 H 222/121 H Pulse Oximetry 96 Oxygen Delivery Method 02/06/24 13:55 02/06/24 13:55 02/06/24 13:55 Pulse Rate 100 H 97 H Respiratory Rate 21 Blood Pressure 222/121 H 205/133 H Pulse Oximetry 98 Oxygen Delivery Method 02/06/24 13:56 02/06/24 13:56 02/06/24 14:00 Pulse Rate 97 H 101 H Respiratory Rate 13 15 Blood Pressure 197/133 H Pulse Oximetry 98 95 Oxygen Delivery Method 02/06/24 14:00 02/06/24 14:05 02/06/24 14:05 Pulse Rate 101 H Respiratory Rate 18 Blood Pressure 202/94 H 130/87 Pulse Oximetry 96 Oxygen Delivery Method 02/06/24 14:10 02/06/24 14:10 02/06/24 14:15 Pulse Rate 102 H 97 H Respiratory Rate 29 H 12 Blood Pressure 135/91 H Pulse Oximetry 96 95 Oxygen Delivery Method 02/06/24 14:15 02/06/24 14:20 02/06/24 14:20 Pulse Rate 98 H Respiratory Rate 22 Blood Pressure 169/95 H 165/92 H Pulse Oximetry 95 Oxygen Delivery Method 02/06/24 14:20 02/06/24 14:25 02/06/24 14:25 Pulse Rate 96 H 89 Respiratory Rate 17 Blood Pressure 156/82 H 156/82 H Pulse Oximetry 97 Oxygen Delivery Method 02/06/24 14:30 02/06/24 14:30 02/06/24 14:41 Pulse Rate 96 H 87 Respiratory Rate 17 24 Blood Pressure 153/85 H Pulse Oximetry 96 97 Oxygen Delivery Method 02/06/24 14:41 02/06/24 15:00 02/06/24 15:05 Pulse Rate 100 H 85 Respiratory Rate 22 Blood Pressure 150/83 H Pulse Oximetry 97 93 Oxygen Delivery Method 02/06/24 15:10 02/06/24 15:15 02/06/24 15:20 Pulse Rate 86 85 86 Respiratory Rate 15 13 15 Blood Pressure Pulse Oximetry 94 94 95 Oxygen Delivery Method 02/06/24 15:25 02/06/24 15:30 02/06/24 15:35 Pulse Rate 83 83 89 Respiratory Rate 12 12 28 H Blood Pressure Pulse Oximetry 95 96 98 Oxygen Delivery Method 02/06/24 15:40 02/06/24 15:45 02/06/24 15:49 Pulse Rate 97 H 85 91 H Respiratory Rate 21 18 15 Blood Pressure Pulse Oximetry 96 98 98 Oxygen Delivery Method 02/06/24 15:49 02/06/24 15:50 02/06/24 15:55 Pulse Rate 85 80 Respiratory Rate 15 24 Blood Pressure 145/96 H Pulse Oximetry 97 97 Oxygen Delivery Method 02/06/24 16:00 02/06/24 16:05 02/06/24 16:10 Pulse Rate 83 86 95 H Respiratory Rate 25 H 12 14 Blood Pressure Pulse Oximetry 96 94 96 Oxygen Delivery Method 02/06/24 16:10 02/06/24 16:15 02/06/24 16:20 Pulse Rate 84 92 H Respiratory Rate 21 20 Blood Pressure 151/103 H Pulse Oximetry 94 96 Oxygen Delivery Method 02/06/24 16:25 02/06/24 16:30 02/06/24 16:35 Pulse Rate 101 H 94 H 102 H Respiratory Rate 26 H 19 31 H Blood Pressure Pulse Oximetry 96 92 92 Oxygen Delivery Method 02/06/24 16:40 02/06/24 16:45 02/06/24 16:50 Pulse Rate 100 H 96 H 93 H Respiratory Rate 16 20 16 Blood Pressure Pulse Oximetry 94 93 92 Oxygen Delivery Method 02/06/24 16:55 02/06/24 16:59 02/06/24 16:59 Pulse Rate 100 H 97 H Respiratory Rate 20 14 Blood Pressure 139/93 H Pulse Oximetry 93 94 Oxygen Delivery Method 02/06/24 17:00 02/06/24 17:01 02/06/24 17:05 Pulse Rate 109 H 98 H 102 H Respiratory Rate 17 Blood Pressure 139/93 H Pulse Oximetry 94 94 Oxygen Delivery Method 02/06/24 17:10 02/06/24 17:15 02/06/24 17:19 Pulse Rate 96 H 96 H 96 H Respiratory Rate 15 19 Blood Pressure Pulse Oximetry 91 90 L 91 Oxygen Delivery Method 02/06/24 17:19 02/06/24 17:20 02/06/24 17:25 Pulse Rate 91 H 96 H Respiratory Rate 14 21 Blood Pressure 116/67 Pulse Oximetry 92 90 L Oxygen Delivery Method 02/06/24 17:30 02/06/24 17:30 02/06/24 17:35 Pulse Rate 95 H 96 H Respiratory Rate 20 21 Blood Pressure 114/65 Pulse Oximetry 91 Oxygen Delivery Method 02/06/24 17:40 02/06/24 17:45 02/06/24 17:50 Pulse Rate 96 H 89 95 H Respiratory Rate 19 14 19 Blood Pressure Pulse Oximetry 96 91 Oxygen Delivery Method 02/06/24 17:55 02/06/24 18:00 02/06/24 18:01 Pulse Rate 108 H 102 H 97 H Respiratory Rate 23 22 23 Blood Pressure Pulse Oximetry 96 97 99 Oxygen Delivery Method 02/06/24 18:01 02/06/24 18:05 02/06/24 18:10 Pulse Rate 92 H 94 H Respiratory Rate 15 15 Blood Pressure 123/68 Pulse Oximetry 97 96 Oxygen Delivery Method 02/06/24 18:15 02/06/24 18:20 02/06/24 18:25 Pulse Rate 91 H 99 H 99 H Respiratory Rate 19 22 23 Blood Pressure Pulse Oximetry 95 95 97 Oxygen Delivery Method 02/06/24 18:30 02/06/24 18:30 02/06/24 18:35 Pulse Rate 93 H 91 H Respiratory Rate 15 11 L Blood Pressure 135/74 Pulse Oximetry 96 95 Oxygen Delivery Method 02/06/24 18:40 02/06/24 18:45 02/06/24 18:45 Pulse Rate 94 H 98 H Respiratory Rate 12 13 Blood Pressure 141/92 H Pulse Oximetry 95 93 Oxygen Delivery Method 02/06/24 19:05 02/06/24 19:10 02/06/24 19:15 Pulse Rate 97 H 97 H 93 H Respiratory Rate 17 19 23 Blood Pressure Pulse Oximetry 93 92 Oxygen Delivery Method 02/06/24 19:20 02/06/24 19:25 02/06/24 19:31 Pulse Rate 93 H 93 H 118 H Respiratory Rate 26 H 26 H 18 Blood Pressure Pulse Oximetry Oxygen Delivery Method 02/06/24 19:32 02/06/24 19:32 02/06/24 19:35 Pulse Rate 111 H 107 H Respiratory Rate 19 19 Blood Pressure 131/93 H Pulse Oximetry 97 97 Oxygen Delivery Method Room Air 02/06/24 19:40 02/06/24 20:00 02/06/24 20:00 Pulse Rate 105 H 107 H Respiratory Rate 18 15 Blood Pressure 145/93 H Pulse Oximetry 96 94 Oxygen Delivery Method Room Air 02/06/24 20:20 02/06/24 20:30 02/06/24 20:30 Pulse Rate 98 H 106 H Respiratory Rate 21 19 Blood Pressure 122/82 Pulse Oximetry 96 94 Oxygen Delivery Method Room Air 02/06/24 20:40 Pulse Rate 96 H Respiratory Rate 19 Blood Pressure Pulse Oximetry 96 Oxygen Delivery Method Room Air MDM - Chest Pain Lab Data Attestation: I reviewed the patient's lab results. 02/06/24 11:10 02/06/24 11:10 Labs: Lab Results 08/02/06/24 02/06/24 Range/Units 10:46 11:10 13:10 WBC 16.6 H (4.5-11.0) X10^3/uL RBC 5.18 (4.5-5.9) X10^6/uL Hgb 16.6 (13.5-17.5) g/dL Hct 48.2 (41-53) % MCV 93.0 (80-100) fL MCH 32.0 (26-34) PG MCHC 34.4 (30-36) % RDW 13.4 (11.6-14.8) % Plt Count 318 (150-400) X10^3/uL Neut % (Auto) 88.7 H (50-75) % Lymph % (Auto) 6.3 L (25-40) % [place] % (Auto) 4.5 (3-14) % Eos % (Auto) 0.0 L (2-4) % Baso % (Auto) 0.5 (0-2) % Neut # (Auto) 71220 H (9668-9759) /uL Lymph # (Auto) 1000 L (5145-1753) /uL [place] # (Auto) 700 (0-900) /uL Eos # (Auto) 0 (0-450) /uL Baso # (Auto) 100 (0-100) /uL PT 11.8 (9.4-12.5) SECONDS INR 1.0 (0.9-1.3) APTT 38 H (25.1-36.5) SECONDS Sodium 141 (137-145) mmol/L Potassium 4.0 (3.4-5.1) mmol/L Chloride 105 (98-107) mmol/L Carbon Dioxide 24 (22-32) mmol/L BUN 15 (9-20) mg/dL Creatinine 0.87 (0.66-1.25) mg/dL Estimated GFR > 60 (>60) mL/min BUN/Creatinine Ratio 17.2 (6-22) Glucose 169 H (70-100) mg/dL Lactate 1.6 (0.7-2.1) mmol/L Calcium 10.9 H (8.4-10.2) mg/dL Total Bilirubin 1.2 (0.2-1.3) mg/dL AST 123 H (17-59) IU/L ALT 41 (<50) IU/L Alkaline Phosphatase 90 (38-126) U/L Troponin I 4.610 H* 4.830 H* (0.01-0.034) ng/mL Total Protein 8.1 (6.3-8.2) g/dL Albumin 4.7 (3.5-5.0) g/dL Globulin 3.4 (1.7-4.1) g/dL Albumin/Globulin Ratio 1.4 (1.0-2.8) Lipase 165 (23-300) U/L Procalcitonin 0.058 (<0.5) ng/mL Urine Color Urine Appearance Urine pH (4.5-8.0) Ur Specific [place] (1.000-1.035) Urine Protein (Negative) Urine Glucose (UA) (Negative) g/dL Urine Ketones (NEGATIVE) Urine Occult Blood (Negative) Urine Nitrate (Negative) Urine Bilirubin (NEGATIVE) Urine Urobilinogen (0.2) E.U./dL Ur Leukocyte Esterase (NEGATIVE) Urine RBC (0-5/HPF) Urine WBC (0-5/HPF) Ur Squamous Epith Cells (0-5/HPF) Amorphous Sediment Urine Bacteria (None) Ur Culture Indicated? Vol Urine Centrifuged Chlamy pneumoniae PCR Not detected (Not Detect) Adenovirus (PCR) Not detected (Not Detect) B.parapertussis DNA PCR Not detected (Not Detecte) Coronavirus OC43 (PCR) Not detected (Not Detect) Coronavirus HKU1 (PCR) Not detected (Not Detect) Coronavirus 229E (PCR) Not detected (Not Detect) SARS-CoV-2 (PCR) Not detected (Not Detecte) Coronavirus NL63 (PCR) Not detected (Not Detect) Human Metapneumovir PCR Not detected (Not Detect) Influenza Type A (PCR) Not detected (Not Detect) Influenza Type B (PCR) Not detected (Not Detect) M. pneumoniae (PCR) Not detected (Not Detect) Parainfluenza 1 (PCR) Not detected (Not Detect) Parainfluenza 2 (PCR) Not detected (Not Detect) Parainfluenza 3 (PCR) Not detected (Not Detect) Parainfluenza 4 (PCR) Not detected (Not Detect) RSV (PCR) Not detected (Not Detect) Entero/Rhino (PCR) Not detected (Not Detect) 02/06/24 Range/Units 13:20 WBC (4.5-11.0) X10^3/uL RBC (4.5-5.9) X10^6/uL Hgb (13.5-17.5) g/dL Hct (41-53) % MCV (80-100) fL MCH (26-34) PG MCHC (30-36) % RDW (11.6-14.8) % Plt Count (150-400) X10^3/uL Neut % (Auto) (50-75) % Lymph % (Auto) (25-40) % [place] % (Auto) (3-14) % Eos % (Auto) (2-4) % Baso % (Auto) (0-2) % Neut # (Auto) (1008-7432) /uL Lymph # (Auto) (0347-7720) /uL [place] # (Auto) (0-900) /uL Eos # (Auto) (0-450) /uL Baso # (Auto) (0-100) /uL PT (9.4-12.5) SECONDS INR (0.9-1.3) APTT (25.1-36.5) SECONDS Sodium (137-145) mmol/L Potassium (3.4-5.1) mmol/L Chloride (98-107) mmol/L Carbon Dioxide (22-32) mmol/L BUN (9-20) mg/dL Creatinine (0.66-1.25) mg/dL Estimated GFR (>60) mL/min BUN/Creatinine Ratio (6-22) Glucose (70-100) mg/dL Lactate (0.7-2.1) mmol/L Calcium (8.4-10.2) mg/dL Total Bilirubin (0.2-1.3) mg/dL AST (17-59) IU/L ALT (<50) IU/L Alkaline Phosphatase (38-126) U/L Troponin I (0.01-0.034) ng/mL Total Protein (6.3-8.2) g/dL Albumin (3.5-5.0) g/dL Globulin (1.7-4.1) g/dL Albumin/Globulin Ratio (1.0-2.8) Lipase (23-300) U/L Procalcitonin (<0.5) ng/mL Urine Color Yellow Urine Appearance Clear Urine pH 8.0 (4.5-8.0) Ur Specific [place] 1.015 (1.000-1.035) Urine Protein 1+ H (Negative) Urine Glucose (UA) Negative (Negative) g/dL Urine Ketones 1+ H (NEGATIVE) Urine Occult Blood Trace-intact (Negative) Urine Nitrate Negative (Negative) Urine Bilirubin Negative (NEGATIVE) Urine Urobilinogen 0.2 (0.2) E.U./dL Ur Leukocyte Esterase Negative (NEGATIVE) Urine RBC 0-1/hpf (0-5/HPF) Urine WBC 0-1/hpf (0-5/HPF) Ur Squamous Epith Cells None seen (0-5/HPF) Amorphous Sediment 1+ Urine Bacteria Occasional (0-1) (None) Ur Culture Indicated? Cult not indicated Vol Urine Centrifuged 10ml (spun) Chlamy pneumoniae PCR (Not Detect) Adenovirus (PCR) (Not Detect) B.parapertussis DNA PCR (Not Detecte) Coronavirus OC43 (PCR) (Not Detect) Coronavirus HKU1 (PCR) (Not Detect) Coronavirus 229E (PCR) (Not Detect) SARS-CoV-2 (PCR) (Not Detecte) Coronavirus NL63 (PCR) (Not Detect) Human Metapneumovir PCR (Not Detect) Influenza Type A (PCR) (Not Detect) Influenza Type B (PCR) (Not Detect) M. pneumoniae (PCR) (Not Detect) Parainfluenza 1 (PCR) (Not Detect) Parainfluenza 2 (PCR) (Not Detect) Parainfluenza 3 (PCR) (Not Detect) Parainfluenza 4 (PCR) (Not Detect) RSV (PCR) (Not Detect) Entero/Rhino (PCR) (Not Detect) Urine Dip Bedside Urine Glucose Negative Bedside Urine Bilirubin - Negative Bedside Urine Ketone ++ 40 Urine Specific [place] 1.005 Bedside Urine Occult Blood +/- Bedside Urine pH 9.0 Bedside Urine Protein + 30 Bedside Urine Urobilinogen - Negative Bedside Urine Nitrite - Negative Bedside Urine Leukocytes - Negative Esterase Imaging Data Chest x-ray: Radiologist's Impression: [address] [address] XRay Report Signed Patient: Abhinav Carl MR#: [id number] : 1970 Acct:[id number] Age/Sex: 53 / M Date of Service: 02/06/24 Loc: ED Accession Number: [id number] Procedure: XR chest 1V Ordering Provider: Rio Mcfadden MD PROCEDURE: XR CHEST 1V INDICATIONS: suspected sepsis TECHNIQUE: One view of the chest was acquired. COMPARISON: [facility], CR, XR CHEST 2V, 06/02/2023, 9:09. [facility], CR, XR CHEST 1V, 05/19/2022, 11:28. FINDINGS: Surgical changes and devices: None. Lungs and pleura: No dense consolidation or pleural effusion Mediastinum: Heart size is within normal limits Bones and chest wall: Unremarkable IMPRESSION: No acute radiographic abnormality on this limited single view portable study. Dictated by: Anthony Torres M.D. on 02/06/2024 at 11:30 Approved by: Anthony Torres M.D. on 02/06/2024 at 11:31 CT scan - abdomen/pelvis: Radiologist's Impression: [place] [address] CT Scan Report Signed Patient: Abhinav Carl MR#: [id number] : 1970 Acct:[id number] Age/Sex: 53 / M Date of Service: 02/06/24 Loc: ED Accession Number: [id number] Procedure: CT abdomen pelvis w con Ordering Provider: Rio Mcfadden MD PROCEDURE: CT ABDOMEN PELVIS W CON INDICATIONS: abd pain, N/V TECHNIQUE: After the administration of intravenous contrast, axial sections acquired from the lung bases to the pubic symphysis. Coronal and sagittal reformats were performed. For radiation dose reduction, the following was used: automated exposure control, adjustment of mA and/or kV according to patient size. COMPARISON: None. FINDINGS: Image quality: Diagnostic Lower chest: Lower lungs appear unremarkable. Mild nonspecific distal esophageal wall thickening and possible small hiatal hernia. There are annular heart calcifications partially seen Liver: Subcentimeter lesions are too small to characterize, usually cysts or hemangiomas. Gallbladder and biliary system: Cholelithiasis. Nondilated biliary system Pancreas: No ductal dilation Spleen: Nonenlarged Adrenals: No discrete nodules Kidneys: Nonobstructing renal calculi are seen bilaterally, measuring up to 1 cm in the left lower pole. No hydronephrosis. Right posterior cyst. No complicated or solid lesion identified requiring follow-up. Vessels and lymph nodes: No abdominal aortic aneurysm. No pathologic lymph nodes by size criteria. The main portal vein appears patent. Bowel and peritoneum: No evidence of small bowel obstruction or pathologic ascites. Colonic diverticula are present appendix is nondilated Body wall: Small fat containing umbilical hernia. Small fat containing inguinal hernias. Pelvis: Bladder is unremarkable. The prostate is mildly enlarged heterogeneous, not well evaluated on CT. Bones: No acute or suspicious osseous finding. There are degenerative changes. IMPRESSION: Cholelithiasis. Nonobstructing bilateral renal calculi without hydronephrosis. No other acute abdominal pelvic abnormality. Incidental and likely nonacute findings above Dictated by: Anthony Torres M.D. on 02/06/2024 at 13:05 Approved by: Anthony Torres M.D. on 02/06/2024 at 13:08 ECG Data Attestation: I personally reviewed and interpreted this ECG as follows: Interpretation: 1047, Sinus tachycardia with rate of 113, possible ST segment depression V1 through V3. No ST segment elevation changes obvious. CA 156, QRS 86, QTC 452. 1404, normal sinus rhythm with a rate of 98, no obvious ST segment depressions but positive R-wave lead 1. CA 164, QRS 88, QTC 467. MDM Narrative Medical decision making narrative: 53-year-old male with 3 days of cough muscle aches, with similar duration respiratory symptoms, neither known to have COVID, concerned about COVID. Also with chest pain worse with cough, upper abdominal pain, numerous episodes nonbloody emesis. Sinus tachycardia noted on triage vitals. EKG without obvious ischemic changes. Chest x-ray screening test negative. Respiratory panel and other labs pending. White blood cell count 66899, lactate not elevated, GFR favorable. Patient still has upper abdominal discomfort. IV morphine. Urinalysis requested. Respiratory panel negative. CT abdomen pelvis ordered CT abdomen and pelvis showed no acute changes, see radiology report. Troponin added to initial draw, elevated at 4.9, repeat EKG showed continued no acute ischemic changes. Ongoing abdominal discomfort, likely anginal equivalent, non-STEMI. Nitroglycerin trial. CTA chest added. We will add heparin if no aortic dissection/aneurysm Single nitroglycerin given, along with IV labetalol 10 mg, systolic blood pressure 220 reduced to 130, heart rate decreased. Chest pain decreased some. We will change to IV nitroglycerin drip titratable. Await CTA chest results to see if heparin can be added. 1530, CTA chest no acute changes. Pulmonary nodule noted. We will add IV heparin bolus/infusion. Consider transferred to cardiology capable facility, we will contact [facility] cardiology Dr. Reyez. PO aspirin. 1615, call returned from Dr. Reyez, agrees with heparin and nitroglycerin, further titrate nitroglycerin for blood pressure effect, patient is pain-free, continue heparin, he suggest transfer to inpatient [facility], we will attempt calling hospitalist. No beds available at [facility], [employer] to query regional 1700, still no designation, CC to be consulted, pain-free on nitroglycerin and heparin drip 1800, discussed case with [facility] hospitalist Dr. Gunderson, accepts patient for admission, also discussed case with their physician relations manager Dr. Almonte, he will consult. Critical Care Time Critical Care Time Critical Care Time: Yes Total Critical Care Time: 35 Attestation: The high probability of a clinically significant, sudden or life threatening deterioration of the [cardiopulmonary, gastrointestinal, genitourinary] system(s) required my full and direct attention, intervention and personal management. The aggregate critical care time was [35] minutes. This time is in addition to time spent performing reported procedures but includes the following: [x] Data Review and interpretation [x] Patient assessment and monitoring of vital signs [x] Documentation [x] Medication orders and management Discharge Plan Departure Clinical Impression: Nausea & vomiting, Dehydration, Non-ST elevated myocardial infarction, Abdominal pain Prescriptions: No Action cetirizine [Zyrtec] 10 mg tablet 10 mg PO DAILY PRN (Reason: allergy symptoms) Qty: 90 3RF losartan 50 mg tablet 50 mg PO DAILY Qty: 90 3RF atorvastatin [Lipitor] 20 mg tablet 20 mg PO BEDTIME Qty: 90 3RF Referrals: Carlita Tang DO [Primary Care Provider] -
--- NOTE | 2024-02-06 12:01 | DI.CT.S_ITS ---
PROCEDURE: CT ABDOMEN PELVIS W CON INDICATIONS: abd pain, N/V TECHNIQUE: After the administration of intravenous contrast, axial sections acquired from the lung bases to the pubic symphysis. Coronal and sagittal reformats were performed. For radiation dose reduction, the following was used: automated exposure control, adjustment of mA and/or kV according to patient size. COMPARISON: None. FINDINGS: Image quality: Diagnostic Lower chest: Lower lungs appear unremarkable. Mild nonspecific distal esophageal wall thickening and possible small hiatal hernia. There are annular heart calcifications partially seen Liver: Subcentimeter lesions are too small to characterize, usually cysts or hemangiomas. Gallbladder and biliary system: Cholelithiasis. Nondilated biliary system Pancreas: No ductal dilation Spleen: Nonenlarged Adrenals: No discrete nodules Kidneys: Nonobstructing renal calculi are seen bilaterally, measuring up to 1 cm in the left lower pole. No hydronephrosis. Right posterior cyst. No complicated or solid lesion identified requiring follow-up. Vessels and lymph nodes: No abdominal aortic aneurysm. No pathologic lymph nodes by size criteria. The main portal vein appears patent. Bowel and peritoneum: No evidence of small bowel obstruction or pathologic ascites. Colonic diverticula are present appendix is nondilated Body wall: Small fat containing umbilical hernia. Small fat containing inguinal hernias. Pelvis: Bladder is unremarkable. The prostate is mildly enlarged heterogeneous, not well evaluated on CT. Bones: No acute or suspicious osseous finding. There are degenerative changes. IMPRESSION: Cholelithiasis. Nonobstructing bilateral renal calculi without hydronephrosis. No other acute abdominal pelvic abnormality. Incidental and likely nonacute findings above Dictated by: Anthony Torres M.D. on 02/06/2024 at 13:05 Approved by: Anthony Torres M.D. on 02/06/2024 at 13:08
[2024-02-06] MEDS: ONDANSETRON 4 MG ODT SL (12:22)
[2024-02-06] MEDS: MORPHINE 4 MG/ML INJ IV ×2 (12:22→21:16)
[2024-02-06] MEDS: LORazepam 2 MG/ML INJ 1 MG IM (12:33)
--- NOTE | 2024-02-06 13:34 | PC.NURSE ---
Addendum entered by Kesha Perez R.N. 02/06/24 14:21: 1330 Pt still has 01/26 epigastric cp. Nauseous & diaphoretic. Dr Mcfadden notified. Original Note: 1240 Pt states that he is still in a lot of pain & nauseous. 01/26. Pt skin pale and diaphoretic. Dr Mcfadden aware and gave verbal order for 1mg lorazepam.
--- NOTE | 2024-02-06 13:35 | DI.CT.S_ITS ---
PROCEDURE: CT ANGIO CHEST PE PROTOCOL INDICATIONS: trop elevated, chest pain TECHNIQUE: After the administration of intravenous contrast, 2 mm thick sections acquired from the pulmonary apices to the posterior costophrenic angles. 3-dimensional maximum intensity projection (MIP) coronal and sagittal reformats were then acquired through the thorax. For radiation dose reduction, the following was used: automated exposure control, adjustment of mA and/or kV according to patient size. COMPARISON: None. FINDINGS: Image quality: Diagnostic. Pulmonary arteries: Pulmonary arteries are normal in size, and demonstrate no intraluminal filling defects to suggest central pulmonary embolism. Lower Neck: No enlarged lymph nodes. Thyroid: No thyroid nodules which require sonographic follow up, per consensus guidelines. Axillae: No enlarged lymph nodes. Chest Wall: Unremarkable. Bones: Unremarkable. Lungs and Pleura: No pneumothorax or pleural effusions. No consolidation or suspicious nodules. 3 mm pleural based pulmonary nodule, peripheral right upper lobe, image 177 of series 5, likely benign. Heart: Heart size is normal. No pericardial effusion. Thoracic Vessels: No aortic aneurysm. Mediastinum and Shila: No enlarged lymph nodes. Esophagus: No wall thickening. No hiatal hernia. Upper Abdomen: Visualized upper abdomen solid organs and bowel loops appear normal. IMPRESSION: No pulmonary embolus. No acute cardiopulmonary process. 3 mm right upper lobe pulmonary nodule, likely benign. Dictated by: Chris Hamm M.D. on 02/06/2024 at 15:24 Approved by: Chris Hamm M.D. on 02/06/2024 at 15:25
[2024-02-06] MEDS: LABETALOL 20 MG/4 ML SYRINGE 10 MG IV (13:50)
[2024-02-06 13:51] LABS: Appearance Urine UA CLEAR; Bilirubin Urine UA NEGATIVE (NEGATIVE); Color Urine UA YELLOW; Glucose Urine UA NEGATIVE (Negative); Ketones Urine UA 1+ (NEGATIVE); Leukocyte Esterase Urine UA NEGATIVE (NEGATIVE); Nitrite Urine UA NEGATIVE (Negative); Occult Blood Urine UA TRACE-INTACT (Negative); Protein Urine UA 1+ (Negative); Specific Gravity Urine UA 1.015 (1.000-1.035); Urobilinogen Urine UA 0.2 E.U./dL (0.2)
[2024-02-06] MEDS: NITROGLYCERIN 0.4 MG SL TAB SL (13:55)
--- NOTE | 2024-02-06 14:04 | EKG_ITS ---
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
[2024-02-06 14:20] LABS: Amorphous Sediment Urine 1+; Bacteria Urine Occasional (0-1); Culture Indicated Urine Cult Not Indicated; RBC Urine 0-1/HPF (0-5/HPF); Squamous Epithelial Cell Urine None Seen (0-5/HPF); Urine Volume 10mL (spun); WBC Urine 0-1/HPF (0-5/HPF)
[2024-02-06] MEDS: METOCLOPRAMIDE 10 MG/2 ML INJ IV (15:40)
[2024-02-06] MEDS: HEPARIN 5,000 UNIT/ML VIAL 5000 UNIT IV (15:47)
[2024-02-06] MEDS: HEPARIN DRIP 25,000 UNIT/500 ML IV.SOLN 26.133 UNIT IV (15:47)
[2024-02-06] MEDS: NITROGLYCERIN 50 MG/250 ML INFUS..BTL IV (15:49)
[2024-02-06] MEDS: HYDROMORPHONE 1 MG INJ IV (16:00)
--- NOTE | 2024-02-06 16:12 | PC.NURSE ---
Pt reports that he is now cp free after starting nitro drip and giving dilaudid. Pt states that he is resting comfortably. VS WNL. Skin still clammy.
--- NOTE | 2024-02-06 16:22 | PC.NURSE ---
Spoke with Dr Mcfadden and nitro goal of dystolic bp below 100 and MAP above 65. pt remains cp free and resting comfortably in bed.
--- NOTE | 2024-02-06 18:48 | PC.NURSE ---
Pt remains cp free. Denies n/v. Skin pink, warm & dry. A&Ox4.
[2024-02-06] MEDS: ASPIRIN 81 MG CHEW TAB 324 MG PO (18:57)
[2024-02-06 23:02] LABS: PTT Partial Thromboplastin Tim 63 SECONDS (25.1-36.5)
--- NOTE | 2024-02-06 23:31 | PC.NURSE ---
Report given to Gabriela SANCHEZ on [facility].
--- NOTE | 2024-02-06 23:44 | PC.NURSE ---
Report given to Heather SANCHEZ at [facility] #[phone].
--- NOTE | 2024-02-06 23:45 | PC.NURSE ---
Patient left department with heparin running at 12nits/kg/hr. Nitroglycerin running at 20mcg/min.
== END 2024-02-06 23:55 | disposition short-term general hospital (02) ==
PROVIDERS: Emergency Provider Emergency Medicine; PCP Family Medicine
DX: I21.4 Non-ST elevation (NSTEMI) myocardial infarction (principal); R11.2 Nausea with vomiting, unspecified; R00.0 Tachycardia, unspecified; E86.0 Dehydration; R10.10 Upper abdominal pain, unspecified; Z11.52 Encounter for screening for COVID-19
CPT/HCPCS: 36415; 71045; 71275; 74177; 80053; 81001; 81003; 83605; 83690; 84145; 84484; 85025; 85610; 85730; 87040; 87633; 93005; 96361; 96365; 96366; 96368; 96372; 96375; 96376; 99284; 99291; J1170; J1644; J2060; J2270; J2405; J2765; Q9967